=== PATIENT | male | born 1985 | race Caucasian/White ===

== ENCOUNTER 2021-10-24 12:09 | Emergency (ER) | payer MEDICAID ==
[~2021-10-24] VITALS: Ht 172.7 cm; Wt 122.1 kg
[2021-10-24 12:11] VITALS: BP 150/127
[2021-10-24] MEDS ORDERED: LORazepam 2 MG/ML VIAL ONE (12:23)
[2021-10-24] MEDS ORDERED: NACL 0.9% 1,000 ML IV ONE (12:25)
[2021-10-24] MEDS ORDERED: LORazepam 2 MG/ML VIAL IVP ONE (12:25)
--- NOTE | 2021-10-24 12:32 | NUR ---
URINE AND BLOOD DRAWN AND IN THE LAB.
--- NOTE | 2021-10-24 12:32 | NUR ---
20 G IV ESTABLISHED IN L AC AND BLOOD WORK COLLECTED FROM IV.
--- NOTE | 2021-10-24 12:39 | NUR ---
36 Y/O MALE C/O LEFT SIDED ONGOING CHEST PAIN FOR THE PAST 1 YEAR AND HALF, L ARM NUMBNESS SINCE YESTERDAY AND R FLANK PAIN. DYSURIA X 3 DAYS. BP 150/127 AT ARRIVAL.
[2021-10-24 12:40] LABS: BASOPHILS # (AUTO) 0.1 K/uL (0.00-0.22); BASOPHILS % (AUTO) 0.8 % (0.0-2.0); EOSINOPHILS # (AUTO) 0.2 K/uL (0-0.4); EOSINOPHILS % (AUTO) 2.9 % (0.0-4.0); HEMATOCRIT 47.9 % (36-52); HEMOGLOBIN 16.2 g/dL (12.0-18.0); LYMPHOCYTES # (AUTO) 1.5 K/uL (2.0-11.5); LYMPHOCYTES % (AUTO) 21.1 % (20.5-51.1); MEAN CORPUSCULAR HEMOGLOBIN 27 pg (27-31); MEAN CORPUSCULAR HGB CONC 34 g/dL (33-37); MONOCYTES # (AUTO) 0.6 K/uL (0.8-1.0); NEUTROPHILS # (AUTO) 4.8 K/uL (1.8-7.7); NEUTROPHILS % (AUTO) 67.2 % (42.2-75.2); PLATELET COUNT (AUTO) 293 K/uL (140-450); RED BLOOD CELL COUNT(AUTO) 6.07 MIL/uL (4.20-6.10); RED CELL DISTRIBUTION WIDTH 13.1 % (11.6-13.7); WHITE BLOOD COUNT (AUTO) 7.1 K/uL (4.8-10.8)
--- NOTE | 2021-10-24 12:52 | NUR ---
X-RAY AT BEDSIDE.
--- NOTE | 2021-10-24 13:10 | NUR ---
RECIEVED CONSENT TO SPEAK TO GRANDMOTHER IN LAW, JONN. PROVIDED WITH UPDATE OVER PHONE Addendum: 10/24/21 at 1312 by [email or web address] PHONE NUMBER [phone] TO PROVIDE UPDATE ON PATIENT STATUS
[2021-10-24 13:12] LABS: ANION GAP 18.8 (8-16); CARBON DIOXIDE 26.4 mmol/L (21-32); POTASSIUM 3.2 mmol/L (3.5-5.1)
[2021-10-24] MEDS ORDERED: BLOO1EAC9 MC (14:10)
[2021-10-24] MEDS ORDERED: POTASSIUM CHLORIDE 10 MEQ TABER PO ONE (14:10)
[2021-10-24] MEDS ORDERED: METF-350 PO (14:10)
[2021-10-24] MEDS ORDERED: LANC-983 TP (14:10)
[2021-10-24 14:50] VITALS: BP 163/97
--- NOTE | 2021-10-24 14:51 | NUR ---
Patient discharged with v/s stable. Written and verbal after care instructions given and explained. Patient alert, oriented and verbalized understanding of instructions. Ambulatory with steady gait. All questions addressed prior to discharge. ID band removed. Patient advised to follow up with PMD. Rx of BLOOD-GLUCOSE METER, LANCETS, METFORMIN HCI given. Opportunity to ask questions provided and answered.
--- NOTE | 2021-10-24 14:52 | NUR ---
Chart checked and completed. The patient's care was reviewed and supervised by Mery Jones RN.
== END 2021-10-24 14:50 | disposition home or self-care (01) ==
LOC: MED 12:09
DX: R07.2 Precordial pain (principal); F15.10 Other stimulant abuse, uncomplicated; E86.0 Dehydration; I10 Essential (primary) hypertension; F17.200 Nicotine dependence, unspecified, uncomplicated; Z79.899 Other long term (current) drug therapy
CPT/HCPCS: 36415; 71045; 80048; 81002; 83880; 84484; 85025; 86592; 86702; 93005; 96361; 96374; 99285; J2060; J7030; Q0092

== ENCOUNTER 2021-10-28 11:17 | Emergency (ER) | payer MEDICAID, OTHER ==
[~2021-10-28] VITALS: Ht 172.7 cm; Wt 122.0 kg
[~2021-10-28 11:17] MED LIST: BLOO1EAC9 MC; LANC-983 TP; METF-350 PO
[2021-10-28 11:22] VITALS: BP 199/114
--- NOTE | 2021-10-28 11:34 | NUR ---
PT AMB TO BED 5.
--- NOTE | 2021-10-28 11:59 | NUR ---
36/M BIB WITH C/O URINARY RETENTION. PATIENT STATES HE WAS DIAGNOSED WITH NEW ONSET DIABETES ON MONDAY, STATING HE HAS BEEN "DRINKING A GALLON OF WATER A DAY" STATING HE HAS ONLY BEEN ABLE TO URINATE "ONCE OR TWICE A DAY." PATIENT STATES HE HAS BEEN EXPERIENCING PAIN UPON URINATION AND ALSO STATES HE HAS CONSTANT PENILE PAIN, DENIES DISCHARGE OR BLOOD. PATIENT ALSO C/O RIGHT LOWER SIDE PAIN RADIATING TO LOWER BACK, DENIES TAKING ANYTHING FOR PAIN. PATIENT DENIES N/V/D, CP, SOB, FEVER OR CHILLS.
[2021-10-28 13:23] LABS: BASOPHILS # (AUTO) 0.1 K/uL (0.00-0.22); BASOPHILS % (AUTO) 0.6 % (0.0-2.0); EOSINOPHILS # (AUTO) 0.4 K/uL (0-0.4); HEMOGLOBIN 14.4 g/dL (12.0-18.0); LYMPHOCYTES # (AUTO) 1.5 K/uL (2.0-11.5); LYMPHOCYTES % (AUTO) 17.3 % (20.5-51.1); MEAN CORPUSCULAR HEMOGLOBIN 26 pg (27-31); MEAN CORPUSCULAR HGB CONC 33 g/dL (33-37); MEAN CORPUSCULAR VOLUME 79.5 fL (80-94); MONOCYTES # (AUTO) 0.6 K/uL (0.8-1.0); MONOCYTES % (AUTO) 6.7 % (1.7-9.3); NEUTROPHILS # (AUTO) 5.9 K/uL (1.8-7.7); NEUTROPHILS % (AUTO) 70.4 % (42.2-75.2); PLATELET COUNT (AUTO) 260 K/uL (140-450); RED BLOOD CELL COUNT(AUTO) 5.53 MIL/uL (4.20-6.10); RED CELL DISTRIBUTION WIDTH 13.4 % (11.6-13.7); WHITE BLOOD COUNT (AUTO) 8.4 K/uL (4.8-10.8)
--- NOTE | 2021-10-28 13:30 | NUR ---
UA SENT TO LAB
[2021-10-28 13:37] LABS: APPEARANCE,URINE CLEAR (CLEAR); BILIRUBIN,URINE NEGATIVE (NEGATIVE); BLOOD, URINE 2+ (NEGATIVE); COLOR,URINE YELLOW (YELLOW); LEUKOCYTE ESTERASE ,URINE NEGATIVE (NEGATIVE); NITRITE, URINE NEGATIVE (NEGATIVE); UGLUCOSE NEGATIVE (NEGATIVE)
[2021-10-28 13:40] LABS: ALBUMIN 3.5 g/dL (3.4-5.0); ANION GAP 13.4 (8-16); CARBON DIOXIDE 27.3 mmol/L (21-32); CREATININE 0.8 mg/dL (0.6-1.3); POTASSIUM 3.7 mmol/L (3.5-5.1); TOTAL BILIRUBIN 0.5 mg/dL (0.0-1.0)
[2021-10-28 13:53] LABS: WBC,URINE 0-5 /HPF (0-5)
[2021-10-28] MEDS ORDERED: cephALEXin 500 MG CAP PO ONE (14:15)
[2021-10-28] MEDS ORDERED: CEPH-588 PO (14:22)
[2021-10-28 14:32] VITALS: BP 165/103
--- NOTE | 2021-10-28 14:32 | NUR ---
Patient discharged with v/s stable. Written and verbal after care instructions ABOUT URINARY TRACT INFECTION given and explained. Patient alert, oriented and verbalized understanding of instructions. Ambulatory with steady gait. All questions addressed prior to discharge. ID band removed. Patient advised to follow up with PMD. Rx of KEFLEX given. Patient educated on indication of medication including possible reaction and side effects. Opportunity to ask questions provided and answered.
== END 2021-10-28 14:32 | disposition home or self-care (01) ==
LOC: MED 11:17
DX: N39.0 Urinary tract infection, site not specified (principal); R31.29 Other microscopic hematuria; E11.9 Type 2 diabetes mellitus without complications; I10 Essential (primary) hypertension; F17.200 Nicotine dependence, unspecified, uncomplicated; F15.90 Other stimulant use, unspecified, uncomplicated; Z79.84 Long term (current) use of oral hypoglycemic drugs; Z79.899 Other long term (current) drug therapy
CPT/HCPCS: 36415; 80053; 81001; 85025; 99283

== ENCOUNTER 2022-04-09 11:53 | Inpatient (IN) | payer OTHER ==
[~2022-04-09] VITALS: Ht 175.3 cm; Wt 122.5 kg
[~2022-04-09 11:53] MED LIST changes: +CEPH-588 PO
[2022-04-09 11:59] VITALS: BP 185/119
--- NOTE | 2022-04-09 12:14 | NUR ---
PT BIB SELF C/O RECTAL PAIN/ABCESS ON L BUTTOCK X 1WEEK. PT STATED "HE HAS BEEN EXPERINCING SOB, FEVER/CHILLS XTODAY." PMH: DM, HTN, METH USE. PT DENIES N/V/D; SKIN IS INTACT, FLUSHED/COOL/DIAPHORETIC; AAOX4, PERRL, PT UNABLE TO WALK S/P RECTAL PAIN, LUNGS CLEAR BL, BREATHING UNLABORED; HR EVEN AND REGULAR, BL PERIPHERAL PULSES PRESENT; BS ACTIVE X4, NO TENDERNESS TO PALPATION. PT STATES 7/10 PAIN AT THIS TIME; VSS; PATIENT POSITIONED FOR COMFORT; HOB ELEVATED; BEDRAILS UP X2; BED DOWN.
[2022-04-09] MEDS ORDERED: NACL 0.9% 1,000 ML IV SCH ×2 (13:05→15:00)
--- NOTE | 2022-04-09 13:24 | NUR ---
imelda swabbed at this time given to phleb
--- NOTE | 2022-04-09 13:24 | NUR ---
pt wheelchair assist to imaging at this time
[2022-04-09 13:35] LABS: BASOPHILS # (AUTO) 0.1 K/uL (0.00-0.22); BASOPHILS % (AUTO) 0.9 % (0.0-2.0); EOSINOPHILS # (AUTO) 0.4 K/uL (0-0.4); EOSINOPHILS % (AUTO) 4.2 % (0.0-4.0); HEMATOCRIT 42.8 % (36-52); HEMOGLOBIN 13.9 g/dL (12.0-18.0); LYMPHOCYTES # (AUTO) 1.2 K/uL (2.0-11.5); MEAN CORPUSCULAR HEMOGLOBIN 26 pg (27-31); MEAN CORPUSCULAR HGB CONC 33 g/dL (33-37); MEAN CORPUSCULAR VOLUME 79.1 fL (80-94); MONOCYTES # (AUTO) 0.5 K/uL (0.8-1.0); NEUTROPHILS % (AUTO) 77.9 % (42.2-75.2); PLATELET COUNT (AUTO) 370 K/uL (140-450); RED BLOOD CELL COUNT(AUTO) 5.41 MIL/uL (4.20-6.10); RED CELL DISTRIBUTION WIDTH 13.3 % (11.6-13.7); WHITE BLOOD COUNT (AUTO) 10.3 K/uL (4.8-10.8)
[2022-04-09 13:50] LABS: PROTHROMBIN TIME 9.6 secs (10.8-13.4)
[2022-04-09 13:55] LABS: ALBUMIN 3.4 g/dL (3.4-5.0); ANION GAP 11.1 (8-16); CARBON DIOXIDE 30.1 mmol/L (21-32); CREATININE 0.9 mg/dL (0.6-1.3); POTASSIUM 4.2 mmol/L (3.5-5.1); TOTAL BILIRUBIN 0.2 mg/dL (0.0-1.0)
--- NOTE | 2022-04-09 14:07 | NUR ---
pt ambulated to bathroom at this time. at bedside
[2022-04-09] MEDS ORDERED: VANCOMYCIN 1,000 MG in DEXTROSE 5% 250 ML IV ONE (14:15)
[2022-04-09] MEDS ORDERED: KETOROLAC 30 MG/ML VIAL IVP ONE (14:20)
[2022-04-09] MEDS ORDERED: VANCOMYCIN 1,000 MG VIAL ONE (14:49)
[2022-04-09] MEDS ORDERED: DEXTROSE 50% 50 ML SYR IVP PRN (15:00)
[2022-04-09] MEDS ORDERED: ONDANSETRON 4 MG/2 ML VIAL IVP PRN (15:00)
[2022-04-09] MEDS ORDERED: INSULIN LISPRO SLIDING SCALE 100 UNITS/ML VIAL SUBQ PRN (15:00)
[2022-04-09] MEDS ORDERED: HYDROcodone/APAP 5/325 MG 1 TAB TAB PO PRN (15:00)
[2022-04-09] MEDS ORDERED: MORPHINE SULFATE 2 MG/ML SYR IVP PRN (15:00)
[2022-04-09] MEDS ORDERED: LORazepam 2 MG/ML VIAL IVP PRN (15:00)
[2022-04-09] MEDS ORDERED: ACETAMINOPHEN 325 MG TAB PO PRN (15:00)
[2022-04-09] MEDS: BLOOD GLUCOSE MONITORING 1 DEV DEV FS SCH ×2 (16:11→21:00)
--- NOTE | 2022-04-09 16:42 | NUR ---
Patient noted to have existing wounds upon arrival to ER. Photos taken of wound and placed in chart. Wound covered with dressing. Physician informed.
[2022-04-09 17:05] LABS: APPEARANCE,URINE CLEAR (CLEAR); BILIRUBIN,URINE NEGATIVE (NEGATIVE); BLOOD, URINE NEGATIVE (NEGATIVE); COLOR,URINE YELLOW (YELLOW); LEUKOCYTE ESTERASE ,URINE NEGATIVE (NEGATIVE); NITRITE, URINE NEGATIVE (NEGATIVE); PH,URINE 7.5 (5.0-9.0); UGLUCOSE 3+ (NEGATIVE)
[2022-04-09] MEDS ORDERED: MORPHINE SULFATE 4 MG/ML SYR IVP ONE (17:50)
[2022-04-09] MEDS ORDERED: PIPERACILLIN/TAZOBACTAM 3.375 GM in DEXTROSE 5% 50 ML IV SCH (18:00)
[2022-04-09] MEDS ORDERED: hydrALAZINE 10 MG TAB ONE (18:20)
[2022-04-09 18:21] LABS: BARBITURATE, URINE NEGATIVE ng/ml (NEG <=200); BENZODIAZEPINE, URINE NEGATIVE ng/mL (NEG <=200); CANNABINOID, URINE NEGATIVE ng/mL (NEG <=50); COCAINE, URINE NEGATIVE ng/mL (NEG <=300); PHENCYCLIDINE SCREEN,URINE NEGATIVE ng/mL (NEG <=25)
[2022-04-09 18:22] LABS: OPIATE, URINE NEGATIVE ng/mL (NEG <=2000)
[2022-04-09] MEDS ORDERED: PIPERACILLIN/TAZOBACTAM 3.375 GM VIAL IV ONE (18:31)
[2022-04-09] MEDS ORDERED: HYDROXYZINE HYDROCHLORIDE 10 MG TAB PO PRN (18:35)
[2022-04-09] MEDS ORDERED: hydrALAZINE 10 MG TAB PO PRN (19:05)
[2022-04-09] MEDS ORDERED: hydrALAZINE 25 MG TAB PO SCH (20:00)
--- NOTE | 2022-04-09 20:30 | NUR ---
claus Flores MD
--- NOTE | 2022-04-09 20:31 | NUR ---
spoke with Mark PAYNE about patient condition and continuous elevated BP, received orders of 10mg IV labetolol.
[2022-04-09] MEDS ORDERED: LABETALOL 100 MG/20 ML VIAL IV ONE (20:35)
[2022-04-09] MEDS ORDERED: LABETALOL 20 MG/4 ML VIAL IVP ONE (20:40)
--- NOTE | 2022-04-09 20:45 | NUR ---
PATIENT STATED HE DIDNT WANT TO SLEEP IN THE HOSPITAL. HE STATED "I RATHER GO HOME AND GET MY ROOM IN THE RETIREMENT IN [place] AND IF ANYTHING I WILL COME BACK TMRW. I WANT TO GET REST WITH MY GF TONIGHT."
--- NOTE | 2022-04-09 20:45 | NUR ---
Spoke to MD Naylor in regards to patient stating he wanted to go home.
--- NOTE | 2022-04-09 20:50 | NUR ---
IV removed, catheter intact and site benign. Applied folded 4x4 gauze and tape to stop bleeding.
--- NOTE | 2022-04-09 20:50 | NUR ---
MD Naylor at bedside speaking to patient about the risks of leaving against medical advice. Patient still refused to be admitted.
--- NOTE | 2022-04-09 20:52 | NUR ---
AMA SIGNED AND PLACED IN CHART
[2022-04-09 20:55] VITALS: BP 173/109
--- NOTE | 2022-04-09 21:11 | NUR ---
SPOKE TO ADMITTING MD, MADE AWARE OF PATIENT LEAVING AMA.
--- NOTE | 2022-04-10 00:28 | NUR ---
The patient's care was reviewed and supervised by Sadia Gaines RN. Chart checked.
[2022-04-10] MEDS ORDERED: ENOXAPARIN 40 MG/0.4 ML SYR SUBQ SCH (09:00)
== END 2022-04-09 20:52 | disposition left against medical advice (07) | DRG 254 ==
LOC: MED 11:53 → MMU 15:07 → MTU 16:13
PROVIDERS: ADMIT Hospitalist; ATTEND Hospitalist
DX: K61.0 Anal abscess (principal); E86.0 Dehydration; F15.10 Other stimulant abuse, uncomplicated; Z20.822 Contact with and (suspected) exposure to COVID-19; Z59.00 Homelessness unspecified; Z91.19 Patient's noncompliance with other medical treatment and regimen
CPT/HCPCS: 36415; 71045; 80053; 80305; 81003; 83605; 83690; 85025; 85610; 85730; 87040; 87086; 96374; 96375; 99285; J1885; J2060; J2270; J2543; J3370; J3490; J7060; Q0092

== ENCOUNTER 2022-04-10 08:47 | Inpatient (IN) | payer OTHER ==
[~2022-04-10] VITALS: Ht 175.3 cm; Wt 108.9 kg
[~2022-04-10 08:47] MED LIST changes: -BLOO1EAC9 MC; -CEPH-588 PO; +DESFLURANE 240 ML BTL INH ONE; -LANC-983 TP; -METF-350 PO
[2022-04-10 09:04] VITALS: BP 188/110
[2022-04-10] MEDS ORDERED: ENALAPRILAT 2.5 MG/2 ML VIAL IVP ONE (09:15)
--- NOTE | 2022-04-10 09:15 | NUR ---
TO ER BED 9
--- NOTE | 2022-04-10 09:24 | NUR ---
18G IV ESTABLISHED IN R AC. BLOODWORK COLLECTED AND HANDED TO TUNA PURSE SEINER BEDSIDE
--- NOTE | 2022-04-10 09:24 | NUR ---
ISABEL SAUER COLLECTED AND HANDED TO LAB BEDSIDE
--- NOTE | 2022-04-10 09:33 | NUR ---
37Y MALE BIB SELF DUE TO HIGH BP. CURRENT BP 188/110. PT DENIES ANY BLURRED VISION OR HEADACHE AT THIS TIME. PT SEEN HERE 04/09/22 FOR RECTAL PAIN. PT STATED HE IS STILL EXPERINCING RECTAL PAIN CURRENTLY 07/06. ABCESS NOTED ON PT RECTAL REGION. PT A&OX4, SKIN DRY AND INTACT, EXCEPT FOR RECTAL REGION. REDNESS NOTED ON GROIN AREA. PT DENIES ANY CP, FEVER/CHILLS, SOB. PMH: HTN NKA
[2022-04-10 09:37] LABS: BASOPHILS # (AUTO) 0.1 K/uL (0.00-0.22); BASOPHILS % (AUTO) 1.1 % (0.0-2.0); EOSINOPHILS # (AUTO) 0.3 K/uL (0-0.4); HEMATOCRIT 42.6 % (36-52); HEMOGLOBIN 13.8 g/dL (12.0-18.0); LYMPHOCYTES # (AUTO) 1.6 K/uL (2.0-11.5); LYMPHOCYTES % (AUTO) 14.5 % (20.5-51.1); MEAN CORPUSCULAR HEMOGLOBIN 26 pg (27-31); MEAN CORPUSCULAR HGB CONC 33 g/dL (33-37); MEAN CORPUSCULAR VOLUME 78.9 fL (80-94); MONOCYTES # (AUTO) 0.5 K/uL (0.8-1.0); MONOCYTES % (AUTO) 4.8 % (1.7-9.3); NEUTROPHILS # (AUTO) 8.5 K/uL (1.8-7.7); NEUTROPHILS % (AUTO) 76.6 % (42.2-75.2); PLATELET COUNT (AUTO) 375 K/uL (140-450); RED BLOOD CELL COUNT(AUTO) 5.39 MIL/uL (4.20-6.10); RED CELL DISTRIBUTION WIDTH 13.5 % (11.6-13.7)
[2022-04-10 09:54] LABS: ALBUMIN 3.4 g/dL (3.4-5.0); ANION GAP 11.6 (8-16); CARBON DIOXIDE 31.2 mmol/L (21-32); CREATININE 0.9 mg/dL (0.6-1.3); POTASSIUM 3.8 mmol/L (3.5-5.1); TOTAL BILIRUBIN 0.3 mg/dL (0.0-1.0)
[2022-04-10] MEDS ORDERED: LABETALOL 100 MG/20 ML VIAL IVP ONE (10:15)
--- NOTE | 2022-04-10 10:18 | NUR ---
PER DR. Magaña PATIENT IS TO BE NPO AFTER MIDNIGHT. PT TO BE PLACED ON SURGERY SCHEDULE TOMORROW
--- NOTE | 2022-04-10 10:25 | NUR ---
DR. CROWLEY BEDSIDE EVALUATING PT
--- NOTE | 2022-04-10 10:37 | NUR ---
Patient appears to be resting comfortably in bed. Vital Signs within normal limits. Respirations even and unlabored.
[2022-04-10] MEDS ORDERED: ONDANSETRON 4 MG/2 ML VIAL IVP PRN (11:20)
[2022-04-10] MEDS ORDERED: MORPHINE SULFATE 4 MG/ML SYR IVP PRN (11:20)
[2022-04-10] MEDS ORDERED: MAGNESIUM OXIDE 400 MG TAB PO PRN (11:20)
[2022-04-10] MEDS ORDERED: KCL 20 MEQ/WATER INJ PREMIX 200 ML IV PRN (11:20)
[2022-04-10] MEDS ORDERED: MAG SULF 2000 MG/WATER PREMIX 50 ML IV PRN (11:20)
[2022-04-10] MEDS ORDERED: ACETAMINOPHEN 325 MG TAB PO PRN (11:20)
[2022-04-10] MEDS ORDERED: POTASSIUM CHLORIDE 10 MEQ TABER PO PRN (11:20)
[2022-04-10] MEDS ORDERED: HYDROcodone/APAP 5/325 MG 1 TAB TAB PO PRN (11:20)
[2022-04-10 11:30] VITALS: BP 143/91
--- NOTE | 2022-04-10 11:30 | NUR ---
RECEIVED PT FROM ER NURSE FOR CONTINUITY OF CARE. PT CAME FROM THE ER VIA GURNEY AND AMBULATED TO THE BED. STEADY GAIT NOTED. PT IS AWAKE AND ALERT. A&OX4. ON RA WITH BREATHING UNLABORED. CONTINENT OF THE BOWEL AND BLADDER. SKIN IS WARM, DRY, AND INTACT. DENIES PAIN AT THIS TIME. NO DISTRESS NOTED. PLAN OF CARE DISCUSSED.
--- NOTE | 2022-04-10 11:41 | NUR ---
Patient will be admitted to care of DR. BUSH. Admited to TELE. Will go to room 118B. Belongings list completed. Report to RENETTA COE.
[2022-04-10] MEDS: PIPERACILLIN/TAZOBACTAM 3.375 GM in DEXTROSE 5% 50 ML IV SCH ×2 (11:52→18:00)
[2022-04-10] MEDS: NACL 0.9% 1,000 ML IV SCH ×2 (11:53→23:58)
--- NOTE | 2022-04-10 13:00 | NUR ---
IS AT BEDSIDE. PT IS SPEAKING APPROPRIATELY. DENIES PAIN AT THIS TIME. WILL CONTINUE TO MONITOR.
--- NOTE | 2022-04-10 14:36 | NUR ---
SMELLED OF SMOKE IN THE ROOM. CALLED SECURITY AND CHELLE CAME TO THE BEDSIDE. PT DENIES SMOKING IN THE ROOM WITH AT BEDSIDE. CHELLE SEARCHED BELONGINGS. SHE TOOK PATIENTS BELONGINGS; ONE VAPE PEN, AIR CARGO GROUND OPERATIONS SUPERVISOR, AND CANISTER WITH CONTENTS. IN WIFES BELONGINGS SHE FOUND TWO VAPE PENS. ASKED TO TAKE THESE OUT AND LEAVE THEM IN CAR AND SHE STATED SHE DID NOT HAVE A CAR. CHELLE STATED SHE WILL HOLD THE WIFES BELONGINGS TILL SHE LEAVES THE HOSPITAL IN WHICH SHE CAN GET THEM FROM SECURITY. AND PATIENT AGREED.
--- NOTE | 2022-04-10 15:37 | NUR ---
SPOKE TO DR. BUSH AND ASKED IF HE HAD SPOKE TO DR. SIMENTAL ABOUT WHEN THE PROCEDURE FOR THE PT WILL BE DONE. HE STATED IT WILL BE DONE TOMORROW THEREFORE PLACED ORDER FOR NPO AFTER MIDNIGHT.
[2022-04-10 16:00] VITALS: BP 151/96
--- NOTE | 2022-04-10 17:30 | NUR ---
PT IS RESTING IN BED. NO DISTRESS NOTED. PT DENIES PAIN. IV IS PATENT AND INFUSING ORDERED. PT STABLE.
--- NOTE | 2022-04-10 19:07 | NUR ---
PT COMPLAINED OF PAIN 9/10 IN RECTUM/RIGHT BUTTOCK AFTER HAVING A BM. PT DESCRIBED PAIN SHARP. PRN MORPHINE GIVEN FOR PAIN.
--- NOTE | 2022-04-10 19:35 | NUR ---
ENDORSED PT TO STOCKKEEPER NURSE FOR CONTINUITY OF CARE. PT IS STABLE. PLAN OF CARE DISCUSSED.
[2022-04-10 20:00] VITALS: BP 189/117
--- NOTE | 2022-04-10 20:00 | NUR ---
GET THE REPORT FROM MORNING NURSE CAT,PATIENT IS LYING ON BED , PATIENT IS ALERT AND ORIENTED X 4, CALL LIGHT IS WITHIN THE REACH ,WILL CONTINUE TO MONITOR PATIENT.
--- NOTE | 2022-04-10 21:00 | NUR ---
PATIENT IS LYING ON BED, PATIENT BP IS 189/117, HR:81, MASSAGE DR AMADO ABOUT PATIENT BLOOD PRESSURE , DOCTOR REPLY WITH HYDRALAZINE 10MG/0.5 ML IV PRN, MEDICATED PATIENT, WILL REASSESS PATIENT BLOOD PRESSURE IN HOUR, NO ANY COMPLAIN OF PAIN OR SHORTNESS OF BREATH AT THIS TIME, CALL LIGHT IS WITHIN THE REACH ,WILL CONTINUE TO MONITOR PATIENT.
[2022-04-10] MEDS ORDERED: DEXTROSE 50% 50 ML SYR IVP PRN (21:15)
[2022-04-10] MEDS ORDERED: hydrALAZINE 20 MG/ML VIAL IVP PRN (21:15)
--- NOTE | 2022-04-10 23:23 | NUR ---
REASSESS PATIENT BLOOD PRESSURE IS 137/90.HR:85, CALL LIGHT IS WITHIN THE REACH, WILL CONTINUE TO MONITOR PATIENT.
[2022-04-11] MEDS: PIPERACILLIN/TAZOBACTAM 3.375 GM in DEXTROSE 5% 50 ML IV SCH ×3 (00:08→12:18)
--- NOTE | 2022-04-11 01:11 | NUR ---
PATIENT IS LYING ON BED, NO ANY COMPLAIN OF PAIN AT THIS TIME ,CALL LIGHT IS WITHIN THE REACH,WILL CONTINUE TO MONITOR PATIENT.
[2022-04-11 04:00] VITALS: BP 143/99
--- NOTE | 2022-04-11 04:15 | NUR ---
PATIENT IS LYING ON BED, VITAL SIGN IS WITHIN THE NORMAL RANGE ,CALL LIGHT IS WITHIN THE REACH ,WILL CONTINUE TO MONITOR PATIENT.
[2022-04-11 05:22] LABS: BASOPHILS # (AUTO) 0.1 K/uL (0.00-0.22); BASOPHILS % (AUTO) 0.8 % (0.0-2.0); EOSINOPHILS # (AUTO) 0.5 K/uL (0-0.4); EOSINOPHILS % (AUTO) 5.4 % (0.0-4.0); HEMATOCRIT 39.8 % (36-52); HEMOGLOBIN 12.9 g/dL (12.0-18.0); LYMPHOCYTES # (AUTO) 1.9 K/uL (2.0-11.5); LYMPHOCYTES % (AUTO) 21.5 % (20.5-51.1); MEAN CORPUSCULAR HEMOGLOBIN 26 pg (27-31); MEAN CORPUSCULAR HGB CONC 32 g/dL (33-37); MEAN CORPUSCULAR VOLUME 79.2 fL (80-94); MONOCYTES # (AUTO) 0.6 K/uL (0.8-1.0); NEUTROPHILS # (AUTO) 5.6 K/uL (1.8-7.7); NEUTROPHILS % (AUTO) 65.3 % (42.2-75.2); PLATELET COUNT (AUTO) 317 K/uL (140-450); RED BLOOD CELL COUNT(AUTO) 5.03 MIL/uL (4.20-6.10); RED CELL DISTRIBUTION WIDTH 13.5 % (11.6-13.7); WHITE BLOOD COUNT (AUTO) 8.6 K/uL (4.8-10.8)
[2022-04-11 05:33] LABS: ALBUMIN 2.9 g/dL (3.4-5.0); ANION GAP 11.9 (8-16); CARBON DIOXIDE 28.3 mmol/L (21-32); CREATININE 0.8 mg/dL (0.6-1.3); MAGNESIUM 2.1 mg/dL (1.8-2.4); POTASSIUM 4.2 mmol/L (3.5-5.1); TOTAL BILIRUBIN 0.2 mg/dL (0.0-1.0)
[2022-04-11] MEDS: BLOOD GLUCOSE MONITORING 1 DEV DEV FS SCH ×2 (06:48→12:07)
[2022-04-11] MEDS: INSULIN LISPRO SLIDING SCALE 100 UNITS/ML VIAL SUBQ PRN ×2 (06:49→12:26)
--- NOTE | 2022-04-11 06:51 | NUR ---
PATIENT BLOOD SUGAR IS 228, 4 UNIT INSULIN GIVEN PER DOCTOR ORDER.WILL CONTINUE TO MONITOR PATIENT.
--- NOTE | 2022-04-11 07:05 | NUR ---
PATIENT HAS BEEN SCREENED AND CATEGORIZED MODERATE NUTRITION RISK. PATIENT WILL BE SEEN WITHIN 3-5 DAYS OF ADMISSION. / ANTONY BARRI[address] RD
[2022-04-11] MEDS ORDERED: BUPIVACAINE-MPF 0.25% 30 ML VIAL INJ ONE (07:13)
--- NOTE | 2022-04-11 07:20 | NUR ---
OR NURSE AT THE FLOOR, WHEELED PT VIA GURNEY TO OR. PT IS STABLE.
[2022-04-11] MEDS ORDERED: HYDROmorphone 1 MG/ML AMP IVP PRN (07:35)
[2022-04-11] MEDS ORDERED: ONDANSETRON 4 MG/2 ML VIAL IVP PRN (07:35)
[2022-04-11] MEDS ORDERED: fentaNYL citrate 0.05 MG/ML VIAL ONE (07:38)
[2022-04-11] MEDS ORDERED: DESFLURANE 240 ML BTL INH ONE (07:56)
[2022-04-11] MEDS ORDERED: ONDANSETRON 4 MG/2 ML VIAL ONE (08:05)
[2022-04-11] MEDS ORDERED: PROPOFOL 200 MG/20 ML VIAL IV ONE (08:05)
[2022-04-11] MEDS ORDERED: KETOROLAC 30 MG/ML VIAL ONE (08:05)
[2022-04-11] MEDS ORDERED: LABETALOL 100 MG/20 ML VIAL ONE (08:06)
--- NOTE | 2022-04-11 09:25 | NUR ---
PT IS BACK FROM OR. WHEELED BY OR NURSE VIA GURNEY. PT NOW IN BED. RESPIRATIONS EVEN AND UNLABORED AT ROOM AIR. NO DISTRESS NOTED. V/S STABLE. IV SITE AT RAC 18G NOW INFUSING NS AT 80ML/HR. CALL LIGHT WITHIN REACH. SAFETY MEASURES IN PLACE. FAMILY MEMBER AT BEDSIDE.
--- NOTE | 2022-04-11 11:15 | NUR ---
DID PT ROUNDS. PT IN BED, RESTING WITH FAMILY MEMBER AT BEDSIDE. NO SIGNS OF DISTRESS NOTED. BREATHING EVEN AND UNLABORED. WILL CONTINUE TO MONITOR.
--- NOTE | 2022-04-11 12:18 | NUR ---
STARTED TAZOBACTAM IVPB ON PT. IV MED INFUSING WELL.
[2022-04-11] MEDS: NACL 0.9% 1,000 ML IV SCH (12:24)
--- NOTE | 2022-04-11 12:26 | NUR ---
BLOOD GLUCOSE CHECK DONE. BS 223. ADMINISTERED SLIDING SCALE INSULIN. PT TOLERATED WELL.
--- NOTE | 2022-04-11 13:25 | NUR ---
DC PLANNING: THE PATIENT ADMITTED FOR C/O DONI-RECTAL ABCESS, TO OR THIS MORNING FOR I&D. ORDERS FOR HOME HEALTH FOR WOUND CARE, CM SPOKE WITH THE PATIENT AND HIS AT BEDSIDE. THE ADDRESS LISTED ON THE FACE SHEET IS A MAILING ADDRESS AND THE BUILDING THAT THEY LIVE BEHIND IN AN ALLEY. THE PATIENT AND HIS ARE HOMELESS, HAVE RESOURCES OF CRAIG FRESH AND USE INCOME FROM RECYCLING. THE PATIENT IS DIABETIC BUT HASN'T BEEN ABLE TO GET A GLUCOMETER EVEN WITH A PRESCRIPTION BECAUSE HE DOESN'T HAVE A DELIVERY ADDRESS. HIS HAS DONE WOUND CARE FOR HIM IN THE PAST WHEN HE HAD A DONI-RECTAL ABCESS, CM ENDORSED TO NURSING THAT WOUND CARE INSTRUCTIONS ARE NEEDED FROM THE MD AND THAT THE WILL NEED TO BE TAUGHT AND WOUND CARE SUPPLIES GIVEN TO THEM PRIOR TO DC. THE PATIENT AND HIS PLAN TO GO [facility] TOM[facility] TO SEE IF THEY CAN BE ACCEPTED TO THEIR RESIDENTIAL PROGRAM. PATIENT REFERRED TO THE FOR RESOURCES. CM WILL FOLLOW.
--- NOTE | 2022-04-11 14:15 | NUR ---
DC INSTRUCTION GIVEN, PT STATED UNDERSTANDING, ALL QUESTIONS ANSWERED, WOUND CARE EDUCATION DONE, TO CHANGE WOUND DAILY WITH WET TO DRY PACKING 4X4 GAUZE. STATED UNDERSTANDING, AT BEDSIDE STATED SHE WILL DO IT. IV TAKEN OUT, CATH INTACT.
--- NOTE | 2022-04-11 14:16 | NUR ---
PT LEFT WITH FAMILY MEMBER. ALL BELONGINGS TAKEN UPON DISCHARGE. PT IS STABLE.
--- NOTE | 2022-04-11 14:50 | NUR ---
DC PLANNING PATIENT IS A 37 YR OLD MALE WHO PRESENTED TO [facility]/ED ON 04/10/22 FOR COMPLAINTS OF DONI-RECTAL ABSCESS. SW MET WITH PATIENT AT BEDSIDE FOR THE PURPOSE OF DISCUSSING AND GATHERING COLLATERAL INFORMATION. PATIENT REPORTS BEING HOMELESS WITH HIS AND REPORTS LIVING BEHIND THE ADDRESS LISTED ([place]). PATIENT REPORTS BEING HOMELESS AND LIVING BEHIND THE BUSINESS FOR ABOUT 1 YR. PATIENT REPORTS PRIOR TO THAT THEY LIVES IN HIS CAR. PATIENT REPORTS THAT HE AND HIS HAVE PLANS TO RECEIVE SERVICES AT [facility] AND REPORTED THAT HE COMPLETED A PHONE ASSESSMENT AND WAS APPROVED. PATIENT REPORTS EMERGENCY CONTACT SISSY QUINTIN [phone]. PATIENT REPORTED HE DOES HAVE A PCP WHOM HE HAS NEVER MET. SW SPOKE WITH PATIENT ABOUT THE IMPORTANCE OF FOLLOW UP CARE, PATIENT WAS RECEPTIVE, HOWEVER, DECLINED SW OFFER TO SCHEDULE FOLLOW UP APPT. PATIENT REPORTS THAT HE IS NOT MEDICATION COMPLIANT DUE TO HOMELESSNESS AND ISSUES WITH HAVING EQUIPMENT DELIVERED TO HIM. PATIENT REPORTS THAT ONCE AT [facility] THAT MEDICAL CARE AND PRESCRIPTIONS SHOULD BE ACCESSIBLE. PATIENT REPORTS THAT HE WILL BE RECIEIVIGN CARE THROUGH [facility] WHO IS CONTRACTED WITH [facility]. PATIENT REPORTS THAT HE IS INDEPENDENT AND DENIES USE OF DME. SW INQUIRED ON SUBSTANCE USE HX, PATIENT REPORTS MARIJUANA USE AND HX OF METH USE. PATIENT REPORTS LAST METH USE FOUR DAYS PRIOR. PATIENT DENIED SUBSTANCE ABUSE ISSUES AND REPORTS THAT HE CAN "TURN IT OFF AND JUST NOT USE AGAIN". SW SPOKE WITH PATIENT ABOUT THE DANGER OF SUBSTANCE USE AND ALF EFFECTS.PATIENT WAS RECEPTIVE. PATIENT REPORTS INCOME SOURCE CRAIG FRESH AND COLLECTING OF RECYCLABLES PATIENT REPORTS DC PLAN IS TO BEGIN PROGRAM AT [facility] WITH BEING TAUGHT HOW TO TREAT WOUND. SW PROVIDED PATIENT WITH EMERGENCY ASSISTANCE, HOMELESS, AND SUBSTANCE USE RESOURCES. PATIENT WAS APPRECIATIVE AND ACCEPTED ALL PACKETS PROVIDED.
== END 2022-04-11 14:40 | disposition home or self-care (01) | DRG 254 ==
LOC: MED 08:47 → MTU 11:20
PROVIDERS: ADMIT Hospitalist; ATTEND Hospitalist
PROC: 0DJD8ZZ Inspection of Lower Intestinal Tract, Via Natural or Artificial Opening Endoscopic (ICD-10-PCS; 2022-04-11)
PROC: 0JBB0ZZ Excision of Perineum Subcutaneous Tissue and Fascia, Open Approach (ICD-10-PCS; principal; 2022-04-11 07:15)
DX: K61.0 Anal abscess (principal); E44.1 Mild protein-calorie malnutrition; E11.65 Type 2 diabetes mellitus with hyperglycemia; K61.1 Rectal abscess; I10 Essential (primary) hypertension; Z20.822 Contact with and (suspected) exposure to COVID-19; Z59.00 Homelessness unspecified
CPT/HCPCS: 36415; 80053; 82948; 83735; 85025; 87070; 87075; 87081; 87205; 88304; 96374; 96375; 99285; J0360; J1885; J2270; J2405; J2543; J2704; J3010; J3490; J7060